=== PATIENT | male | born 1975 | race Hispanic/Latino ===

== ENCOUNTER 2021-04-01 11:26 | Observation (INO) | payer OTHER ==
[~2021-04-01] VITALS: Ht 180.3 cm; Wt 101.4 kg
[2021-04-01 15:30] VITALS: BP 126/70
[2021-04-01] MEDS ORDERED: NITROGLYCERIN 2 MG VIAL IV ONE (16:40)
[2021-04-01] MEDS ORDERED: BIVALIRUDIN 250 MG/VIAL IV ONE (16:40)
[2021-04-01] MEDS ORDERED: IOHEXOL-350 50ML VIAL IV ONE (16:41)
[2021-04-01] MEDS ORDERED: IOHEXOL 350 MG/ML 100ML INFUS..BTL IV ONE (16:41)
[2021-04-01] MEDS ORDERED: LIDOCAINE HCL 400MG/20ML VIAL ONE (16:42)
[2021-04-01] MEDS ORDERED: NICARDIPINE 25MG INJ IV ONE (17:21)
[2021-04-01] MEDS ORDERED: HEPARIN 10,000 UNIT/10ML (1,000 UNIT/ML) VIAL ONE (17:22)
[2021-04-01] MEDS ORDERED: FENTANYL CITRATE PF 50 MCG/1 ML 2ML VIAL ONE (17:38)
[2021-04-01] MEDS ORDERED: MIDAZOLAM HCL 1 MG/ML 2ML VIAL ONE (17:38)
[2021-04-01] MEDS ORDERED: IOHEXOL-350 75 ML VIAL IV ONE (18:01)
[2021-04-01 19:52] VITALS: BP 123/67
[2021-04-01] MEDS: INSULIN HUMULIN R 100 UNIT/ML 3ML SQ SCH (21:00)
[2021-04-01] MEDS ORDERED: ONDANSETRON 4MG INJ IV PRN (21:00)
[2021-04-01] MEDS ORDERED: LORAZEPAM 2 MG/ML 1 ML VIAL IVP PRN (21:00)
[2021-04-01] MEDS ORDERED: ACETAMINOPHEN 325 MG TAB PO PRN ×2 (21:00)
[2021-04-01] MEDS: FAMOTIDINE 20MG TAB PO SCH (21:48)
[2021-04-01] MEDS: CARVEDILOL 3.125 MG TABLET PO SCH (21:48)
[2021-04-01 23:47] VITALS: BP 112/59
[2021-04-02 04:02] LABS: HEMATOCRIT 53.7 % (42-54); MEAN CORPUSCULAR HEMOGLOBIN 28.4 pg (27.0-33.0); MEAN CORPUSCULAR HGB CONC 33.1 g/dL (32.0-36.0); MEAN CORPUSCULAR VOLUME 85.8 fL (79-99); RED BLOOD CELL COUNT(AUTO) 6.26 MIL/uL (4.50-6.20); RED CELL DISTRIBUTION WIDTH 13.7 % (11.0-15.5); WHITE BLOOD COUNT (AUTO) 9.5 K/uL (4.8-10.8)
[2021-04-02 04:10] LABS: CREATININE 1.2 mg/dL (0.5-1.5); POTASSIUM 4.1 mmol/L (3.5-5.1)
[2021-04-02 04:11] VITALS: BP 110/83
[2021-04-02 04:39] LABS: HEMOGLOBIN A1C 7.1 % (4.0-6.0)
[2021-04-02] MEDS: INSULIN HUMULIN R 100 UNIT/ML 3ML SQ SCH ×4 (06:32→20:36)
[2021-04-02 07:00] VITALS: BP 117/80
[2021-04-02] MEDS: FAMOTIDINE 20MG TAB PO SCH ×2 (08:12→20:36)
[2021-04-02] MEDS: CARVEDILOL 3.125 MG TABLET PO SCH ×2 (08:12→20:35)
[2021-04-02] MEDS: FUROSEMIDE 40 MG TABLET PO SCH (08:13)
[2021-04-02] MEDS: ASPIRIN 81 MG EC TAB PO SCH (08:13)
[2021-04-02] MEDS: LOSARTAN 25 MG TABLET PO SCH (08:13)
[2021-04-02] MEDS: SPIRONOLACTONE 25 MG TAB PO SCH (08:14)
[2021-04-02 11:00] VITALS: BP 100/78
[2021-04-02] MEDS ORDERED: AEC81 PO (14:10)
[2021-04-02] MEDS ORDERED: SPIR25TA6 PO (14:10)
[2021-04-02] MEDS ORDERED: CARV3.1262 PO (14:10)
[2021-04-02] MEDS ORDERED: FAMO20TA8 PO (14:10)
[2021-04-02] MEDS ORDERED: LOSA25TA2 PO (14:10)
[2021-04-02] MEDS ORDERED: FURO40TA7 PO (14:10)
[2021-04-02 16:00] VITALS: BP 118/83
[2021-04-02 20:00] VITALS: BP 113/63
[2021-04-03] VITALS: BP 125/68
[2021-04-03 04:00] VITALS: BP 149/76
[2021-04-03 07:00] VITALS: BP 113/73
[2021-04-03] MEDS: INSULIN HUMULIN R 100 UNIT/ML 3ML SQ SCH ×3 (07:30→16:30)
[2021-04-03] MEDS: FUROSEMIDE 40 MG TABLET PO SCH (08:06)
[2021-04-03] MEDS: FAMOTIDINE 20MG TAB PO SCH (08:06)
[2021-04-03] MEDS: SPIRONOLACTONE 25 MG TAB PO SCH (08:06)
[2021-04-03] MEDS: LOSARTAN 25 MG TABLET PO SCH (08:07)
[2021-04-03] MEDS: CARVEDILOL 3.125 MG TABLET PO SCH (08:07)
[2021-04-03] MEDS: ASPIRIN 81 MG EC TAB PO SCH (08:07)
[2021-04-03 09:06] LABS: HEMATOCRIT 54.1 % (42-54); MEAN CORPUSCULAR HGB CONC 33.5 g/dL (32.0-36.0); MEAN CORPUSCULAR VOLUME 83.6 fL (79-99); RED BLOOD CELL COUNT(AUTO) 6.47 MIL/uL (4.50-6.20); RED CELL DISTRIBUTION WIDTH 14.4 % (11.0-15.5); WHITE BLOOD COUNT (AUTO) 8.5 K/uL (4.8-10.8)
[2021-04-03 09:14] LABS: CREATININE 1.4 mg/dL (0.5-1.5); POTASSIUM 3.6 mmol/L (3.5-5.1)
[2021-04-03 11:00] VITALS: BP 95/62
[2021-04-03 16:00] VITALS: BP 112/69
[2021-04-03] MEDS ORDERED: SEVELAMER HCL 800 MG TABLET PO SCH (20:00)
[2021-04-03] MEDS ORDERED: Vitamin B Complex/Vit C/Folic Acid PO SCH (20:00)
== END 2021-04-03 16:00 | disposition left against medical advice (07) ==
LOC: INTOOBSV 14:53 → 2DH 14:53
PROVIDERS: ADMIT Internal Medicine; ATTEND Internal Medicine
DX: I11.0 Hypertensive heart disease with heart failure (principal); I50.43 Acute on chronic combined systolic (congestive) and diastolic (congestive) heart failure; I42.8 Other cardiomyopathies; I34.0 Nonrheumatic mitral (valve) insufficiency; E11.9 Type 2 diabetes mellitus without complications; E78.5 Hyperlipidemia, unspecified; E66.9 Obesity, unspecified; L40.50 Arthropathic psoriasis, unspecified; F10.20 Alcohol dependence, uncomplicated; Z87.891 Personal history of nicotine dependence; Z79.82 Long term (current) use of aspirin; Z79.899 Other long term (current) drug therapy
CPT/HCPCS: 36415 ×2; 80048 ×2; 82948 ×9; 83036; 83735; 85027 ×2; 93458; 93571; C1769 ×3; C1887; C1894 ×3; G0378 ×43; J1644 ×2; J2250; J3010; J3490 ×3; Q9965; Q9967 ×2; 99156; 99157; J0583